=== PATIENT | female | born 1985 ===

== ENCOUNTER 2019-06-14 12:00 | Inpatient (IN) | payer BC ==
[2019-06-14] MEDS ORDERED: Ondansetron PF 4 MG/2 ML Vial IVP PRN ×3 (15:05→20:21)
[2019-06-14] MEDS ORDERED: hydrALAZINE 20 MG/ML VIAL SLOW IVP PRN ×2 (15:05→20:21)
[2019-06-14] MEDS ORDERED: Promethazine HCl 25 MG/ML VIAL IM PRN ×3 (15:05→20:21)
[2019-06-14 15:07] VITALS: BMI 34.9
--- NOTE | 2019-06-14 15:10 | PDOC.LDHP ---
Labor and Delivery H&P HPI: 33 y/o at 38 and 0/7 weeks with Oligohydramnios and hx of fro twins. She declines TOLAC. Current gestational age (weeks): 38 Due date: 06/28/19 Grav: 2 Para: 2 Current complications: oligohydramnios Current medications: pre-steven vitamins Previous surgical history: low tranverse CS, other (Breast Augmentation, Eye Prosthesis (Left)) Social history: none - Physical Exam Vital signs reviewed and normal: yes General: NAD, resting Heart: RRR Lungs: CTAB Abdomen: gravid Extremeties: no edema FHT: category 1 - Assessment L&D Assessment: scheduled repeat section - Plan Plan: admit to L&D, to OR for section
[2019-06-14] MEDS ORDERED: Bicitra 30 ML UDCUP PO SCH (15:15)
[2019-06-14] MEDS ORDERED: Lactated Ringer's 1,000 ML IV SCH (15:15)
[2019-06-14] MEDS ORDERED: CEFAZOLIN 2 GM in Premix Bag 1 BAG IVPB SCH (15:15)
[2019-06-14 15:29] LABS: Hemoglobin 11.3 g/dL (12.0-16.0); Mean Corpuscular HGB CONC 34.3 g/dL (32.0-36.0); Mean Corpuscular Hemoglobin 32.4 pg (27.0-31.0); Mean Corpuscular Volume 94.4 fL (78.0-98.0); Mean Platelet Volume 8.7 fL (7.4-10.4); Platelet Count 256 thou/uL (130-400); RBC Distribution Width 13.2 % (11.5-14.5); Red Blood Cell (RBC) Count 3.47 mill/uL (4.20-5.40); White Blood Cell (WBC) Count 10.9 thou/uL (4.8-10.8)
[2019-06-14 16:12] LABS: HBSAg Index 0.26 S/CO (0-0.99); Hep B Surf Ag Non-Reactive S/CO (NonReactive); Syphilis Antibody Nonreactive (Nonreactive); Syphilis Antibody Index 0.02 S/CO (<1.00 Non-Reactive)
[2019-06-14] MEDS ORDERED: Ondansetron PF 4 MG/2 ML Vial ONE (16:52)
[2019-06-14] MEDS ORDERED: PHENYLEPHRINE-NS 100 MCG/ML 10 ML SYRINGE ONE (16:52)
[2019-06-14] MEDS ORDERED: Fentanyl 100 MCG/2 ML VIAL ONE (16:52)
[2019-06-14] MEDS ORDERED: EPHEDRINE 25 MG/5 ML SYRINGE ONE ×2 (16:52→17:16)
[2019-06-14] MEDS ORDERED: MORPHINE 5 MG/10 ML PF VIAL ONE (16:52)
[2019-06-14] MEDS ORDERED: Oxytocin 10 UNITS/ML VIAL ONE ×2 (16:52→17:56)
[2019-06-14] MEDS ORDERED: Dexamethasone 4 mg/ml Vial ONE (17:28)
[2019-06-14] MEDS ORDERED: Ketorolac Tromethamine 30 MG/ML VIAL ONE (17:28)
[2019-06-14] MEDS ORDERED: Meperidine HCl/PF 25 MG/ML VIAL SLOW IVP PRN (17:29)
[2019-06-14] MEDS ORDERED: diphenhydrAMINE 50 MG/ML VIAL IVP PRN (17:29)
[2019-06-14] MEDS ORDERED: Promethazine HCl 25 MG SUPP PR PRN (17:29)
[2019-06-14] MEDS ORDERED: Ondansetron HCl/PF 4 MG/2 ML Vial IVP PRN (17:29)
[2019-06-14] MEDS ORDERED: Naloxone HCl 0.4 mg/ml Vial IV PRN (17:29)
[2019-06-14] MEDS ORDERED: Naloxone HCl 0.4 mg/ml Vial IVP PRN ×2 (17:29)
[2019-06-14] MEDS ORDERED: HYDROmorphone 2 MG/ML VIAL SLOW IVP PRN (17:29)
[2019-06-14] MEDS ORDERED: L&D-Morphine 4 MG/ML VIAL SLOW IVP PRN (17:29)
[2019-06-14] MEDS ORDERED: Communication Order-Pharmacy FS SCH (17:30)
[2019-06-14] MEDS ORDERED: Meperidine HCl/PF 25 MG/ML VIAL ONE (19:36)
[2019-06-14] MEDS ORDERED: Bisacodyl 10 MG SUPP PR PRN (20:21)
[2019-06-14] MEDS ORDERED: Zolpidem Tartrate 5 MG TAB PO PRN (20:21)
[2019-06-14] MEDS ORDERED: Methylergonovine 0.2 MG/ML VIAL IM PRN (20:21)
[2019-06-14] MEDS ORDERED: Misoprostol 200 MCG TAB PR PRN (20:21)
[2019-06-14] MEDS ORDERED: Lanolin Ointment 7 GM TUBE TOP PRN (20:21)
[2019-06-14] MEDS: Docusate Calcium (SURFAK) 240 MG CAP PO SCH (21:32)
[2019-06-14] MEDS: Ketorolac Tromethamine 30 MG/ML VIAL IVP PRN (23:28)
[2019-06-15] MEDS: Ketorolac Tromethamine 30 MG/ML VIAL IVP PRN (06:16)
[2019-06-15 06:19] LABS: Hemoglobin 9.5 g/dL (12.0-16.0); Mean Corpuscular HGB CONC 33.2 g/dL (32.0-36.0); Mean Corpuscular Hemoglobin 31.7 pg (27.0-31.0); Mean Corpuscular Volume 95.5 fL (78.0-98.0); Mean Platelet Volume 8.3 fL (7.4-10.4); Platelet Count 244 thou/uL (130-400); White Blood Cell (WBC) Count 14.3 thou/uL (4.8-10.8)
[2019-06-15] MEDS: Docusate Calcium (SURFAK) 240 MG CAP PO SCH ×2 (08:49→21:29)
[2019-06-15] MEDS: Prenatal Vitamin 1 TAB PO SCH (08:50)
[2019-06-15] MEDS: HYDROcodone/Acetaminophen 5/325 mg Tablet PO PRN ×4 (08:50→19:55)
[2019-06-15] MEDS ORDERED: Measles/Mumps/Rubella 10 MCG/0.5 ML VIAL SC ONE (09:00)
[2019-06-15] MEDS ORDERED: Varicella virus, LIVE 0.5 ML VIAL SC ONE (09:00)
[2019-06-15] MEDS ORDERED: Adacel (T-DAP) 0.5 ML SYRINGE IM ONE (09:00)
[2019-06-15] MEDS: Simethicone Chewable 80 MG TAB PO PRN (20:04)
[2019-06-15] MEDS: Ibuprofen 800 MG TAB PO SCH (21:29)
[2019-06-16] MEDS: HYDROcodone/Acetaminophen 5/325 mg Tablet PO PRN ×5 (00:36→21:15)
[2019-06-16] MEDS: Ibuprofen 800 MG TAB PO SCH ×3 (05:36→21:15)
[2019-06-16] MEDS: Prenatal Vitamin 1 TAB PO SCH (09:10)
[2019-06-16] MEDS: Docusate Calcium (SURFAK) 240 MG CAP PO SCH ×2 (09:10→21:15)
[2019-06-16] MEDS: Simethicone Chewable 80 MG TAB PO PRN ×2 (12:13→21:15)
[2019-06-17] MEDS: HYDROcodone/Acetaminophen 5/325 mg Tablet PO PRN ×2 (05:26→12:08)
[2019-06-17] MEDS: Ibuprofen 800 MG TAB PO SCH (05:27)
[2019-06-17] MEDS: Docusate Calcium (SURFAK) 240 MG CAP PO SCH (08:14)
[2019-06-17] MEDS: Prenatal Vitamin 1 TAB PO SCH (08:14)
[2019-06-17 08:26] VITALS: BP 104/57; TEMP 99.4
== END 2019-06-17 13:00 | disposition home or self-care (01) | DRG 787 ==
LOC: L&D 14:22 → 3SE 21:04
PROVIDERS: ADMIT Obstetrics & Gynecology; ATTEND Obstetrics & Gynecology
PROC: 10D00Z1 Extraction of Products of Conception, Low, Open Approach (ICD-10-PCS; principal; 2019-06-14)
DX: O34.211 Maternal care for low transverse scar from previous cesarean delivery (principal); O41.03X0 Oligohydramnios, third trimester, not applicable or unspecified; Z3A.38 38 weeks gestation of pregnancy; Z37.0 Single live birth
CPT/HCPCS: 36415; 51702; 85027; 86780; 86850; 86900; 86901; 87340; 88305; 90715; J0690; J1100; J1885; J2175; J2274; J2405; J2590; J3010